=== PATIENT | male | born 1955 ===

== ENCOUNTER 2017-05-18 12:25 | Inpatient (IN) ==
[2017-05-18 13:53] VITALS: BMI 27.2
[2017-05-18] MEDS ORDERED: METOCLOPRAMIDE 10mg/2ml INJECTION IVP PRN (14:36)
[2017-05-18] MEDS ORDERED: ONDANSETRON 4 MG/2 ML INJECTION IVP PRN (14:36)
[2017-05-18] MEDS ORDERED: FentaNYL 100 MCG/2 ML INJECTION IVP PRN (14:36)
--- NOTE | 2017-05-18 15:12 | Ultrasound Report ---
Indication: acute cholecystitis PROCEDURE: US gall bladder: Encounter: Initial Comparison: None Technique: Grayscale and color Doppler sonographic imaging of the right upper quadrant of the abdomen was performed. Findings: Hepatic parenchyma is homogeneous without evidence for focal mass. The gallbladder is abnormal with multiple shadowing gallstones measuring up to 1.5 cm in diameter. At least one stone appears lodged in the gallbladder neck. There is wall thickening up to 5 mm. The sonographic Garcia's sign was positive. Both the intra and extrahepatic biliary system are of normal caliber with the common duct measuring 6 mm in dimension. Visualized portions of the head and body of the pancreas are unremarkable. The right kidney is present without collecting system dilatation. The right kidney measures 10.1 cm in length. Impression: Acute cholecystitis. .
--- NOTE | 2017-05-18 16:16 | History & Physical Report ---
History of Present Illness Date: 05/18/17 Chief complaint: Abdominal pain HPI: Sridhar Che is a 62 y/o male transferred to [facility] from [facility] after admission there for cholecystitis. CT scan on 05/17/17 showed GB wall thickening (an earlier CT revealed percholecystic fat stranding which resolved). There was also a small cyst in the central prostrate. Labs on 05/18/17 : Na 134, K 3.6 (improved from 3.0), BUN 6, cr 0.8, AP 96, ALT 12, AST 15, T bili 0.6, trop neg, lipase 10, WBC 15, hgb 14.9, plt 179. He was actually seen approx. 4 weeks earlier with near-exact symptoms and diagnosed with GB disease. At that time, he was admitted and was cleared by cardiology IRINEO Fields from Dr Patiño's office: Plavix was dc'd (and actually, stated that there was no need to continue it). He was declared to be at moderate michlele- operative CV risk. Since he was readmitted and previously cleared by cardiology , Dr. Arroyo and Dr. Burton were consulted and accepted the patient in transfer. Sridhar reports that he had RUQ pain with nausea and vomiting. He has felt a bit weak in general but denies vertigo, dizziness, or syncope. He has had sweating and chills but denies fevers. He denies diarrhea or constipation or hematochezia or melena - last BM was 05/17/17. He also denied any hematemesis. No recent illness ie URI or urinary sx. He denies chest pain or palpitations but has been told in the past that he has an irreg. HR (though denied A-fib). He has felt "a little" SOA and reports b/l leg swelling. He was on oxygen during this interview but is not O2 dependent at home. He uses breathing treatments at home which are helpful. Review of Systems All systems PM: 10-point ROS was reviewed, no additional remarkable complaints except - Constitutional Constitutional: Present: chills, night sweats, weakness, weight loss. Absent: fever(s), headache(s) - EENMT Eyes: Absent: change in vision Balance: Absent: vertigo Nose: Absent: obstruction Mouth/Throat: Present: sore throat. Absent: changes in swallowing - Cardiovascular Cardiovascular: Present: dyspnea on exertion. Absent: chest pain, palpitations Vascular: Present: pedal edema - Respiratory Respiratory: Present: dyspnea. Absent: cough - Gastrointestinal Gastrointestinal: Present: abdominal pain, dyspepsia, nausea, vomiting. Absent : diarrhea, melena - Genitourinary Genitourinary: Absent: dysuria - Musculoskeletal Musculoskeletal: Present: back pain - Integumentary/Breasts Integumentary: Absent: rash, wounds - Neurological Neurological: Absent: confusion, dizziness, frequent falls, numbness, paresthesias - Psychiatric Psychiatric: Present: anxiety, depression Psychiatric Comments: Records from [place] report that he is a poor historian - Endocrine Endocrine: Absent: palpitations - Hematologic/Lymphatic Hematologic/Lymphatic: Present: easy bruising - Allergic/Immunologic Allergic/Immunologic: Present: seasonal rhinorrhea Past Medical History Medical History Updates: Bipolar, schizoaffective disorder, Major depression, auditory hallucinations. Previous suicide attempt by hanging. Left adrenal mass. CAD. HTN. dyslipidemia. COPD. GERD Surgical History: Right ankle ORIF. Hernia repair x2. Coronary stent x3; (2 placed in 2013; most recent stent 04/2015). Cardiac cath 11/2016: non- obstructive CAD (stent to LAD widely patent, mid RCA 40%, proxRPLA 40%, LAD and Cx luminal irreg, EF 60%). Echo 05/03/17: EF 60-65%, no sigificant valve disease , grade 1 diastolic dysfunction Family History Updates: Both parents are . He doesn't know what chronic diseases (if any) or how old they were at time of . 2 brothers and 1 sister - still living (to his knowledge). Family History: As Above - Social History Smoking status: Current every day smoker Packs per day: 1 Packs-years: 39 Substance use type: marijuana (daily) Alcohol intake frequency: former alcohol drinker (quit drinking in 2004; used to be an alcoholic) Current occupational status: disabled (back pain) Previous occupational history: senior shipping clerk repair Social history: No advanced directives but he would like to ask his best friend, María to be his DPOA <12th grade education Medications Allergies Allergy/AdvReac Type Severity Reaction Status Date / Time passion fruit Allergy Verified 05/18/17 14:05 Exam Vital Signs: Temperature 97.6 F 05/18/17 13:43 Pulse Rate 65 05/18/17 13:43 Respiratory Rate 18 05/18/17 13:43 Blood Pressure 149/90 H 05/18/17 13:43 Pulse Oximetry 95 05/18/17 13:43 Height/Weight/BMI: Height 1.75 m Weight 83.6 kg Body Mass Index 27.2 - Constitutional Present: no acute distress, well nourished, well developed - Routine HEENT Exam Head: Present: normocephalic Eye: Present: PERRL. Absent: conjunctival icterus, scleral injection ENT: Present: mucous membranes dry, oropharynx clear. Absent: dentition normal (edentulous) - Routine Neck Exam Present: supple - Routine Respiratory Exam Present: CTA bilaterally - Routine Cardiovascular Exam Present: RRR, S1, S2, irregular rhythm - Routine Abdominal Exam Present: soft, tenderness (RUQ). Absent: normoactive bowel sounds (hypoactive) - Routine Extremities Exam Present: no edema, pulses intact - Routine Skin Exam Present: intact, dry, warm - Routine Neurological Exam Present: alert, oriented X3, CN II-XII intact, moving all extremities, vision grossly intact, hearing grossly intact, normal speech - Routine Psychiatric Exam Present: normal affect, cooperative Results - Labs CBC & Chem 7: 05/18/17 14:52 05/18/17 14:52 - Imaging and Cardiology US gall bladder Additional comments: Date of Exam: 05/18/17 Ordering Provider: Jesenia Burton MD Type of Exam(s): US gall bladder Reason for Exam(s): acute cholecystectomy Indication: acute cholecystitis PROCEDURE: US gall bladder: Encounter: Initial Comparison: None Technique: Grayscale and color Doppler sonographic imaging of the right upper quadrant of the abdomen was performed. Findings: Hepatic parenchyma is homogeneous without evidence for focal mass. The gallbladder is abnormal with multiple shadowing gallstones measuring up to 1.5 cm in diameter. At least one stone appears lodged in the gallbladder neck. There is wall thickening up to 5 mm. The sonographic Garcia's sign was positive. Both the intra and extrahepatic biliary system are of normal caliber with the common duct measuring 6 mm in dimension. Visualized portions of the head and body of the pancreas are unremarkable. The right kidney is present without collecting system dilatation. The right kidney measures 10.1 cm in length. Impression: Acute cholecystitis. Assessment and Plan (1) Cholecystitis, acute Current visit: Yes Status: Acute Assessment and Plan: ASSESSMENT Acute cholecystitis Leukocytosis, POA Hypokalemia, POA CAD - Plavix dc'd per cardiology HTN dyslipidemia COPD GERD Bipolar, schizoaffective disorder, Major depression (Previous suicide attempt by hanging), auditory hallucinations Left adrenal mass PLAN Admit, observation status, under the hospitalist service. Dr. Arroyo consulted. Results of GB U/S obtained on admission consistent with acute cholecystitis. Plans to take pt to OR in am. NPO after midnight. Recommends to start Zosyn. K still low; KDur ordered. Check mg. Trop was minimally elevated though had neg trop in [place] - repeat in am. Denies angina. EKG ordered, pending. He was cleared by cardiology while still in [place]: moderate michelle-op risk. Sx control: Fentanyl and Reglan and Zofran. Psych history: will have ativan available. No Advanced directives, but he'd like to ask best friend María to be DPOA if she's willing. Full code. Nicotine patch ordered. RT consulted for tobacco cessation. Note: Home meds not reconciled and will need to be ordered once this is done. DVT Prophylaxis: SCD's GI Prophylaxis: Protonix Resuscitation Status: Full Code - Physician Narrative Physician: Jesenia Burton MD Narrative: Date: 05/18/17 Time: 1914 I have independently evaluated and examined this patient. I reviewed the chart, the patient's history, and the APPLE PEELER OPERATOR/PA's documented findings as above. We discussed and formulated the assessment and plan as above with additions as below: Mr. Che was transferred from [facility] due to suspicion of acute cholecystitis; he was referred for surgical consultation. Cardiology has recently given and preoperative clearance and discontinued Plavix since last cardiac stent was placed approximately 3 years ago and since that time he's had no acute cardiac symptoms. Patient is alert and cooperative; regular cardiac rhythm, right sounds clear Abdomen is moderately distended, soft, and tender to palpation in the right upper quadrant without guarding Right upper quadrant/gallbladder sonogram reviewed-multiple gallstones present with gallbladder wall thickening ECG reviewed by myself demonstrating sinus rhythm with incomplete right bundle branch block, diffuse T-wave flattening, no acute changes. Discussed with Dr. Arroyo; operating room schedule does not permit surgery today but tentatively scheduled for laparoscopic cholecystectomy in the morning. Hospital Course Summary Disclaimer: The visit summary below is not to be considered part of the above Progress Note. Hospital Course: 05/18/17 Admit, observation status, under the hospitalist service. Dr. Arroyo consulted. Results of GB U/S obtained on admission consistent with acute cholecystitis. Plans to take pt to OR in am. NPO after midnight. Recommends to start Zosyn. K still low; KDur ordered. Check mg. Trop was minimally elevated though had neg trop in [place] - repeat in am. Denies angina. EKG ordered, pending. He was cleared by cardiology while still in [place]: moderate michelle-op risk. Sx control: Fentanyl and Reglan and Zofran. Psych history: will have ativan available. No Advanced directives, but he'd like to ask best friend María to be DPOA if she's willing. Full code. Nicotine patch ordered. RT consulted for tobacco cessation. Note: Home meds not reconciled and will need to be ordered once this is done.
[2017-05-18] MEDS: PIPERACILLIN/TAZOBACTAM 3.375 GM in NS 100 ML IV SCH ×2 (16:50→21:35)
[2017-05-18] MEDS: LR 1,000 ML IV SCH (16:52)
[2017-05-18] MEDS: NICOTINE 21 MG PATCH TD SCH (18:33)
--- NOTE | 2017-05-18 19:59 | Consultation ---
DATE OF CONSULTATION 05/18/2017 HISTORY OF PRESENT ILLNESS This patient is 62 years old. This patient was admitted to [facility] on 04/16/2017 with acute cholecystitis. The patient had a CT scan at that time which showed fat stranding around the gallbladder. The patient was anticoagulated with Plavix at this time. The patient was treated with intravenous antibiotics. The patient improved. The patient was subsequently discharged home on 04/23/2017. The patient reports that he did not have any further right upper quadrant abdominal pain from the time he was dismissed on 04/23/2017 until 05/17/2017. The Plavix for the patient was stopped about three weeks ago. The patient did have the onset of right upper quadrant abdominal pain again on the morning of 05/17/2017. This was right upper quadrant abdominal pain which radiated to the entire abdomen. This right upper quadrant abdominal pain worsened throughout the day on 05/17/2017. The patient did come to [facility] emergency room on the evening of 05/17/2017. The patient reported that his last oral intake had been at noon. The patient denied vomiting. The patient did undergo a CT scan of the abdomen and pelvis at the time of emergency room evaluation on 05/17/2017. This showed some subtle circumferential gallbladder wall thickening without distention. There was resolution of the previous pericholecystic fat stranding. There was no intra or extrahepatic biliary ductal dilation. White blood cell count was 11,000. Liver function tests were all normal. Lipase was normal. There was no left shift of the differential for the CBC. The patient was admitted to [facility] from the emergency room on the evening of 05/17/2017 for pain control. The patient did have persistent right upper quadrant abdominal pain on the morning of 05/18/2017. He continued to require intravenous analgesics for control of the pain. The patient was transferred from [facility] to [facility] on the afternoon of 05/18/2017 for further evaluation and treatment. PAST MEDICAL HISTORY Previous Operations: 1. Laparoscopic bilateral inguinal hernia repair in 1998 or 1999 at [facility] [place], [place]. 2. Right ankle operation for repair of right ankle fracture in [address] [facility] at [place], [place]. 3. Cardiac catheterization with placement of coronary artery stent in 2013 at [place], [place]. 4. Cardiac catheterization with placement of coronary artery stent later in 2013 at [place], [place]. 5. Cardiac catheterization with placement of coronary artery stent in April 2015 in [place]. 6. Cardiac catheterization on 12/09/[address] Stephen at the [facility] [place], [place]. The patient was admitted on 12/08/2017 and discharged on 12/09/2016. Discharge diagnosis was non-STEMI. The cardiac catheterization did reveal nonobstructive coronary artery disease. There was a previous stent of the left anterior descending coronary artery which was widely patent. There was 40% stenosis of the mid right coronary artery. Other Current Medical Problems: 1. Coronary artery disease. 2. Nicotine dependence. 3. Chronic obstructive pulmonary disease. 4. Gastroesophageal reflux disease. 5. Chronic back pain. 6. Schizoaffective disorder. 7. Hypertension. 8. Hyperlipidemia. PHYSICAL EXAMINATION VITAL SIGNS: Temperature is 97.6 degrees Fahrenheit oral. Pulse is 65. Respiratory rate is 18. Blood pressure is 149/90. Oxygen saturation is 95% with the patient receiving oxygen at 4 liters by nasal cannula. Height is 1.75 meters. Weight is 83.6 kg. BMI is 27.2 kg/m2. ABDOMEN: The abdomen is soft. No abdominal masses. The patient has some mild right upper quadrant abdominal tenderness at this time. The patient has old laparoscopy incision scars including an old supraumbilical incision scar. SKIN: No jaundice. LABORATORY DATA White blood cell count is 13,400 with no bands. There are 79.6% neutrophils in the differential. Serum sodium is 144. Serum potassium is 3.5. Serum creatinine is 0.8. IMAGING DATA This patient did have a gallbladder sonogram performed at [facility] on 05/18/2017. The gallbladder sonogram does show multiple shadowing gallstones. One gallstone appears to be lodged in the gallbladder neck. There is gallbladder wall thickening. There is a positive sonographic Garcia's sign. Findings are thought to be consistent with acute cholecystitis and cholelithiasis. Bile ducts are not dilated. IMPRESSION 1. Acute cholecystitis and cholelithiasis. 2. Mild hypokalemia. 3. Coronary artery disease. 4. Nicotine dependence. 5. Chronic obstructive pulmonary disease. 6. Gastroesophageal reflux disease. 7. Chronic back pain. 8. Schizoaffective disorder. 9. Hypertension. 10. Hyperlipidemia. RECOMMENDATIONS 1. Multiport robotic laparoscopic cholecystectomy. 2. Start patient on intravenous Zosyn. PATIENT EDUCATION I did talk with the patient about undergoing a laparoscopic cholecystectomy operation. Expected benefits were reviewed. Alternatives were reviewed. Potential risks and complications were also reviewed including anesthetic risk, bleeding, infection, poor wound healing, bile leak and injury to intraabdominal structures such as the liver, the common duct, the duodenum and loops of large and small intestine. I did tell the patient that there is a chance that any laparoscopic cholecystectomy operation such as this might need to be converted over to an open laparotomy with cholecystectomy operation. The patient does appear to understand all of this. He does wish to proceed with the operation. RADHA
[2017-05-19] MEDS: LR 1,000 ML IV SCH ×5 (01:55→22:36)
[2017-05-19] MEDS: PIPERACILLIN/TAZOBACTAM 3.375 GM in NS 100 ML IV SCH ×4 (04:23→22:12)
[2017-05-19] MEDS: NICOTINE 21 MG PATCH TD SCH ×2 (09:03→22:12)
[2017-05-19] MEDS: NICOTINE PATCH REMOVAL TD SCH (09:03)
--- NOTE | 2017-05-19 09:14 | Anesthesia Preoperative Report ---
Anesthesia Preoperative Record - Date and Time Date: 05/19/17 Preoperative Diagnosis: Right upper quadrant pain Proposed Procedure: Robotic Lap gregor NPO Since Date: 05/19/17 NPO Since Time: 00:00 Allergies/Adverse Reactions: Allergies Allergy/AdvReac Type Severity Reaction Status Date / Time passion fruit Allergy Verified 05/18/17 14:05 - Vital Signs Vital Signs: Temperature 97.1 F 05/19/17 07:57 Pulse Rate 86 05/19/17 07:57 Respiratory Rate 18 05/19/17 07:57 Blood Pressure 152/108 H 05/19/17 07:57 Pulse Oximetry 94 05/19/17 07:57 Height and Weight: Height 1.75 m Weight 82 kg Body Mass Index 27.2 - Medications Inpatient Medications: Current Medications Fentanyl (Fentanyl) 25 - 50 mcg IVP Q2HR PRN Lactated Ringer's (Lactated Ringers) 1,000 mls @ 100 mls/hr IV .Q10H JOSELYN Last Infusion: 05/19/17 04:53 Dose: 100 mls/hr Piperacillin Sod/Tazobactam (Sod 3.375 gm/ Sodium Chloride) 100 mls @ 200 mls/ hr IV Q6H JOSELYN Last Infusion: 05/19/17 04:53 Dose: Infused Lorazepam (Ativan Inj) 0.5 mg IVP Q6H PRN Metoclopramide HCl (Reglan) 5 mg IVP Q6H PRN Nicotine (Nicoderm) 21 mg TD DAILY JOSELNY Last Admin: 05/19/17 09:03 Dose: Not Given Nicotine (Nicotine Patch Removal) 1 removal TD DAILY JOSELYN Last Admin: 05/19/17 09:03 Dose: 1 removal Ondansetron HCl (Zofran) 4 mg IVP Q6H PRN PRN Reason: Nausea &/or vomiting Pantoprazole Sodium (Protonix Iv) 40 mg IVP DAILY JOSELYN Is Patient on Beta Candace?: No - Medical History Respiratory: Reports: Chronic Obstructive Pulmonary Disease (COPD) Cardiovascular: Reports: Congestive Heart Failure, Hypertension, High Cholesterol, Myocardial Infarction (3x [place]) Gastrointestional: Reports: Nausea or Vomiting Present, Gastroesophageal Reflux Disease Neuro/Musculoskeletal: Reports: Back Problems (2x buldging disks), Depression Renal/Endocrine: Reports: Weight Loss - Surgical History Cardiac Surgeries/Treatments: Reports: Cardiac Catheterization (3x stents) GI Surgery/Treatments: Reports: Hernia Repair (2x groin repair) Musculoskeletal Surgery/Tx: Reports: Joint Surgery (ankle fracture and fixed 2008) Anesthesia Reactions: None Hx Family Anesthesia Reaction: No History of Motion Sickness: No - Social History Smoking Status: Current every day smoker Packs per day: 1 Pack-years: 39 Hx Chewing Tobacco Use: No Second Hand Exposure: No Substance Use Type: marijuana (daily) Alcohol Intake Frequency: former alcohol drinker (quit drinking in 2004; used to be an alcoholic) - Pertinent Findings Laboratory: CBC and BMP 05/19/17 05:09 05/19/17 05:09 BMP 05/18/17 05/19/17 14:52 05:09 Sodium 144 142 Potassium 3.5 L 3.7 Chloride 104 103 Carbon Dioxide 27 28 BUN 7.0 L 8.0 L Creatinine 0.8 0.8 Glucose 124 H 122 H Calcium 8.9 8.9 Cardiac Enzymes 05/18/17 05/18/17 05/19/17 Range/Units 14:52 21:25 05:09 Troponin I 0.121 H 0.092 0.068 (0-0.12) ng/ml Liver Function 05/18/17 Range/Units 14:52 Total Bilirubin 0.40 (0.20-1.30) MG/DL AST 21 (17-59) U/L ALT 14 (1-50) U/L Alkaline Phosphatase 102 (38-126) U/L Albumin 3.8 (3.5-5.0) g/dL EKG: First Degree AV Block, Sinus Dysrhythmia - Physical Exam Respiratory Exam: Present: lungs clear Cardiovascular Exam: Present: regular rate and rhythm - Airway Assessment Mallampati Score: II TMD: 3 Fingerbreadths Neck Extension: fair Overall Assessment: no airway concerns - ASA ASA Score: 3 - Plan Anesthesia: General Inhalation Gases - Discussion Discussion: Discussed risks/options/alternatives of anesthesia and questions answered. Patient consents. Nursing pain assessment noted. Attestation Statement: Prior to the delivery of any anesthetic medication, I examined the patient, developed the plan, obtained the patient's consent and discussed the risk and benefits of the procedure with the patient/guardian. - Additional Information Seen by Anesthesia: Yes
[2017-05-19] MEDS ORDERED: BUPIVACAINE 0.25% (2.5mg/ml) PF 30ml INJECTION ONE ×2 (09:16→09:45)
[2017-05-19] MEDS ORDERED: INDOCYANINE GREEN 25mg INJECTION ONE (09:16)
[2017-05-19] MEDS: PANTOPRAZOLE 40 MG INJECTION IVP SCH (09:41)
[2017-05-19] MEDS ORDERED: PROPOFOL 20 ML ONE (09:45)
[2017-05-19] MEDS ORDERED: ROCURONIUM 50 MG/5 ML INJECTION IVP ONE (09:45)
[2017-05-19] MEDS ORDERED: SALINE FLUSH 10ml SYRINGE ONE (09:49)
[2017-05-19] MEDS ORDERED: METOPROLOL 5mg/5ml INJECTION IVP ONE (10:27)
[2017-05-19] MEDS ORDERED: FentaNYL 250 MCG/5 ML INJECTION ONE (10:27)
[2017-05-19] MEDS ORDERED: ONDANSETRON 4 MG/2 ML INJECTION ONE (10:29)
[2017-05-19] MEDS ORDERED: DEXAMETHASONE 4 MG/ML INJECTION ONE (10:29)
[2017-05-19] MEDS ORDERED: DESFLURANE 240ml LIQUID IH ONE (11:07)
[2017-05-19] MEDS ORDERED: BUPIVACAINE 0.25% (2.5mg/ml) PF 30ml INJECTION INFIL ONE (11:09)
[2017-05-19] MEDS ORDERED: INDOCYANINE GREEN 25mg INJECTION IVP ONE (11:09)
[2017-05-19] MEDS ORDERED: SALINE FLUSH 10ml SYRINGE IV ONE ×2 (11:09→11:11)
--- NOTE | 2017-05-19 11:22 | Progress Note ---
- Date 05/19/17 Subjective: Mr. Che (patient seen approximately 10 AM) reports persistent epigastric pain with minimal nausea and no vomiting overnight. He denies heartburn. He has not had fever but reports he had some diaphoresis overnight. He denies dyspnea, chest pain, palpitations, or lightheadedness. He is tentatively scheduled to go to the operating room in the next hour for cholecystectomy. Objective Vital signs: Temperature 97.1 F 05/19/17 07:57 Pulse Rate 86 05/19/17 07:57 Respiratory Rate 18 05/19/17 07:57 Blood Pressure 152/108 H 05/19/17 07:57 Pulse Oximetry 94 05/19/17 07:57 NAD, alert Conjunctiva clear, sclera anicteric Respirations nonlabored, good airflow, breath sounds clear anteriorly Regular rhythm, S1-S2 Abdomen soft, moderately distended, tender in the palpation throughout the right upper quadrant with guarding present today, diminished bowel sounds Lower extremities without edema Patient calm, cooperative, euthymic Height/Weight/BMI: Height 1.75 m Weight 82 kg Body Mass Index 27.2 Results - Labs CBC & Chem 7: 05/19/17 05:09 05/19/17 05:09 Labs: S83 B1 L8 M8 Troponin troponin 0.121-0.092-0.06 Assessment and Plan (1) Cholecystitis, acute Current visit: Yes Status: Acute Assessment and Plan: ASSESSMENT Acute cholecystitis Leukocytosis, POA Hypokalemia, POA CAD - Plavix dc'd per cardiology HTN dyslipidemia COPD GERD Bipolar, schizoaffective disorder, Major depression (Previous suicide attempt by hanging), auditory hallucinations Left adrenal mass PLAN Medically stable to proceed with surgery as planned. White count higher this morning, continue antibiotics in the immediate postoperative time. Worrisome for biliary infection and may require further inpatient antibiotics. Resume aspirin, metoprolol, Depakote, and Lexapro postoperatively. Patient typically uses DuoNeb twice daily at home but postoperatively will increase to 4 times daily and request are. Continue IV fluids and PPI. - Physician Narrative Narrative: Date: 05/19/17 Time: 1114 Hospital Course Summary Disclaimer: The visit summary below is not to be considered part of the above Progress Note. Hospital Course: 05/18/17 Admit, observation status, under the hospitalist service. Dr. Arroyo consulted. Results of GB U/S obtained on admission consistent with acute cholecystitis. Plans to take pt to OR in am. NPO after midnight. Recommends to start Zosyn. K still low; KDur ordered. Check mg. Trop was minimally elevated though had neg trop in [place] - repeat in am. Denies angina. EKG ordered, pending. He was cleared by cardiology while still in [place]: moderate michelle-op risk. Sx control: Fentanyl and Reglan and Zofran. Psych history: will have ativan available. No Advanced directives, but he'd like to ask best friend María to be DPOA if she's willing. Full code. Nicotine patch ordered. RT consulted for tobacco cessation. Note: Home meds not reconciled and will need to be ordered once this is done. 05/19/17 Medically stable to proceed with surgery as planned. White count higher this morning, continue antibiotics in the immediate postoperative time. Worrisome for biliary infection and may require further inpatient antibiotics. Resume aspirin, metoprolol, Depakote, and Lexapro postoperatively. Patient typically uses DuoNeb twice daily at home but postoperatively will increase to 4 times daily and request are. Continue IV fluids and PPI.
[2017-05-19] MEDS ORDERED: ONDANSETRON 4 MG/2 ML INJECTION IVP PRN ×2 (11:52→12:43)
[2017-05-19] MEDS ORDERED: METOCLOPRAMIDE 10mg/2ml INJECTION IVP PRN (11:52)
[2017-05-19] MEDS ORDERED: FentaNYL 100 MCG/2 ML INJECTION IVP PRN (11:52)
[2017-05-19] MEDS ORDERED: HYDROMORPHONE 2 MG/ML INJECTION IVP PRN (11:52)
[2017-05-19] MEDS ORDERED: SUGAMMADEX 200mg/2ml INJECTION IVP ONE (11:54)
--- NOTE | 2017-05-19 12:10 | General Surgery Procedure Note ---
Date of Procedure: 05/19/17 Surgeon: Dina Postoperative Diagnosis: Acute cholecystitis and cholelithiasis Procedure: Robotic laparoscopic cholecystectomy Estimated Blood Loss: See Anesthesia Record.
--- NOTE | 2017-05-19 12:17 | Anesthesia Postoperative Note ---
- Date and Time Date: 05/19/17 Time: 12:17 - Status Patient Participated in Evaluation: Patient Participated in Person Vital Signs: Temperature 97.1 F 05/19/17 07:57 Pulse Rate 86 05/19/17 07:57 Respiratory Rate 18 05/19/17 07:57 Blood Pressure 152/108 H 05/19/17 07:57 Pulse Oximetry 94 05/19/17 07:57 Respiratory Function: Airway Patent Cardiovascular Function: Regular Pulse EKG: Sinus Rhythm Mental Status: Alert and Oriented Pain Intensity: 0 Hydration: IV Infusing Complications During Recover: None Apparent - Follow-Up Instructions Instructions: Per Surgeon
[2017-05-19] MEDS ORDERED: ACETAMINOPHEN 500 MG TABLET PO PRN (12:43)
[2017-05-19] MEDS ORDERED: MORPHINE SULFATE 10 MG SYRINGE IV PRN (12:43)
[2017-05-19] MEDS ORDERED: IBUPROFEN 200 MG TABLET PO PRN (12:43)
[2017-05-19] MEDS ORDERED: PROMETHAZINE 25 MG INJECTION IVP PRN (12:43)
[2017-05-19] MEDS ORDERED: ALBUTEROL/IPRATROPIUM 2.5mg-0.5mg/3ml NEB AEROSOL SCH (13:00)
[2017-05-19] MEDS ORDERED: INFLUENZA VAC QIV 2017-18 (Fluarix*)(>=3yo) 0.5ml IM ONE (13:00)
[2017-05-19] MEDS ORDERED: INFLUENZA VAC. INJ. ADMIN CHARGE INJ ONE (15:07)
[2017-05-19] MEDS: ALBUTEROL/IPRATROPIUM 2.5mg-0.5mg/3ml NEB AEROSOL SCH ×2 (15:14→18:55)
[2017-05-19] MEDS: Oxycodone *IR* 5 MG TABLET PO PRN ×2 (15:50→18:48)
--- NOTE | 2017-05-19 16:20 | Operative Note ---
DATE OF OPERATION 05/19/2017 PREOPERATIVE DIAGNOSIS Acute cholecystitis and cholelithiasis. POSTOPERATIVE DIAGNOSIS Acute cholecystitis and cholelithiasis. OPERATION Multiport robotic laparoscopic cholecystectomy. SURGEON Dr. Arroyo ANESTHESIA General. ASA Class 3E FINDINGS The gallbladder did appear to be acutely inflamed. The gallbladder wall was thickened. The gallbladder contained multiple gallstones. The gallbladder was distended. The gallbladder was filled with purulent fluid. There was a lot of edema around the gallbladder. The greater omentum was adherent to the outside surface of the gallbladder. The liver appeared normal. DESCRIPTION OF OPERATION The patient did have injectable indocyanine green dye administered intravenously preoperatively. The patient was placed in supine position on the operating table. General anesthesia was satisfactorily induced. The abdomen was prepped and draped in routine sterile fashion. Bupivacaine 0.25% without epinephrine was infiltrated into the skin and underlying tissue at an infraumbilical incision site. An infraumbilical incision was made. A Veress needle was inserted into the peritoneal cavity through the incision. Pneumoperitoneum was established with carbon dioxide. The Veress needle was removed. A 12-mm camera port was placed at the infraumbilical incision. A 12- mm 30-degree da Asia laparoscope was inserted at the infraumbilical port. The patient was placed in reverse Trendelenburg position. The right side of the table was tilted up. The skin and underlying structures at the abdominal wall were infiltrated with bupivacaine at a port site at the left upper quadrant of the abdomen at the midclavicular line. An incision was made at this site and an 8-mm da Asia instrument port was placed at this incision. The skin and underlying abdominal wall structures were infiltrated with bupivacaine at another incision site at the left side of the abdomen. An incision was made at this site and an [employer] certified medical technician assistant port was placed at this incision. The skin and underlying abdominal wall structures were infiltrated with bupivacaine at a port site at the right upper quadrant of the abdomen. An incision was made at this site and an 8-mm da Asia instrument port was placed at this incision. The skin and underlying abdominal wall structures were infiltrated with bupivacaine at another port site at a more lateral location at the right side of the abdomen. An incision was made at this site and another 8-mm da Asia instrument port was placed at this incision. The da Asia robotic system was brought up to the operating table. The da Asia robotic system was docked to the camera port and the instrument ports. The da Asia 12-mm 30-degree laparoscope was inserted at the camera port. A [place] bipolar forceps was inserted at the 8-mm instrument port at the left upper quadrant of the abdomen associated with instrument arm #1. A Cadiere forceps was inserted at the 8-mm instrument port at the right upper quadrant of the abdomen associated with instrument arm #2. An aspirating cannula with syringe attached to it was introduced through the 8-mm port at the right lateral location of the abdomen. The syringe and aspirating cannula were used to aspirate fluid from within the gallbladder. This did decompress the gallbladder and make it less distended. This fluid which was aspirated from the gallbladder was submitted to the laboratory for aerobic and anaerobic bacterial culture and sensitivity studies. A ProGrasp forceps was then inserted at the 8-mm instrument port at the right lateral location at the abdomen associated with instrument arm #3. These instruments were all placed into a position adjacent to the gallbladder. The surgeon went from the patient's side at the operating table to the surgeon console. Greater omentum was bluntly from the fundus of the gallbladder. The ProGrasp forceps with instrument arm #3 was used to grasp the fundus of the gallbladder and elevate the gallbladder. Additional greater omentum was then bluntly from the outer surface of the gallbladder. The ProGrasp forceps with instrument arm #3 was then used to elevate the gallbladder and reflect the liver up superiorly further towards the right diaphragm. Edematous adipose tissue was dissected free from the infundibulum of the gallbladder using the [place] bipolar forceps. When the infundibulum of the gallbladder was finally exposed, the infundibulum of the gallbladder was able to be grasped with the Cadiere forceps with instrument arm #2. Additional tissue was dissected off of the infundibulum of the gallbladder. This was edematous adipose tissue around the infundibulum of the gallbladder. Dissection was then performed at the hepatocystic triangle. The cystic duct was dissected out and identified. The cystic artery was dissected out and identified. The cystic duct was demonstrated with Firefly fluorescence imaging at this time to help confirm the identity of the cystic duct. Dissection was performed at the hepatocystic triangle until the only two structures remaining were the cystic duct and the cystic artery. A critical view of safety was achieved at this time. Dissection was continued until the hepatocystic triangle was cleared of all fatty and fibrous tissue until the only two structures remaining were the cystic duct and the cystic artery. Three of the Hem-o-heather clips were applied to the cystic duct at the junction of the cystic duct and the gallbladder. The cystic duct was divided between the Hem-o-heather clips with a curved dissecting scissors. Two of the Hem-o-heather clips were left in place on the cystic duct stump. Three of the Hem-o-heather clips were also applied to the cystic artery. The cystic artery was divided between the Hem-o- heather clips with the monopolar curved scissors. Two of the Hem-o-heather clips were left in place on the cystic artery stump which was left behind in the patient. The monopolar curved scissors was then used to dissect the gallbladder out of the gallbladder bed. Tissue was coagulated with the monopolar curved scissors as the gallbladder was being dissected out of the gallbladder bed to maintain hemostasis. The gallbladder was completely dissected out of the gallbladder bed. Irrigation was performed at the gallbladder bed. Irrigation was performed at the right subdiaphragmatic space. Irrigation was performed until all the irrigation fluid was clear. The gallbladder was then placed in a position in the peritoneal cavity along the margin of the liver. The instruments were removed from the instrument ports. The da Asia laparoscope was removed from the camera port. The da Asia robotic system was undocked from the ports. The surgeon left the surgeon console and returned back to the side of the patient at the operating table. The da Asia 8.5 mm 30-degree laparoscope was inserted at one of the right-sided da Asia instrument ports. The specimen retrieval pouch was inserted at the camera port. The gallbladder was placed in the specimen retrieval pouch. The specimen retrieval pouch containing the gallbladder was brought out through the infraumbilical incision. The gallbladder was submitted as a specimen for study by the pathologist. The instrument ports were all removed. Carbon dioxide was removed from the peritoneal cavity by desufflation. The fascial layer of the infraumbilical incision was closed with a series of simple interrupted stitches using 0-Vicryl suture. The skin margins were then closed at all the incisions with subcuticular stitches using 4-0 Vicryl suture. Benzoin and 1/4-inch wide Steri- Strips were applied to the incisions. Band-Aids and sterile dressings were applied to the incisions. The patient tolerated the operation well. The patient was transferred from the operating room to the recovery room in satisfactory condition. RADHA
[2017-05-19] MEDS: DIVALPROEX 500 MG TABLET PO SCH (20:43)
[2017-05-20] MEDS: Oxycodone *IR* 5 MG TABLET PO PRN ×5 (00:10→20:03)
[2017-05-20] MEDS: PIPERACILLIN/TAZOBACTAM 3.375 GM in NS 100 ML IV SCH ×4 (05:26→21:55)
[2017-05-20] MEDS: ALBUTEROL/IPRATROPIUM 2.5mg-0.5mg/3ml NEB AEROSOL SCH ×4 (06:43→20:55)
[2017-05-20] MEDS: ASPIRIN 81 MG CHEWABLE TABLET PO SCH (09:56)
[2017-05-20] MEDS: ESCITALOPRAM 20 MG TABLET PO SCH (09:56)
[2017-05-20] MEDS: PANTOPRAZOLE 40 MG INJECTION IVP SCH (09:56)
[2017-05-20] MEDS: NICOTINE PATCH REMOVAL TD SCH (09:57)
[2017-05-20] MEDS: NICOTINE 21 MG PATCH TD SCH (10:00)
--- NOTE | 2017-05-20 10:22 | Progress Note ---
- Date 05/20/17 Subjective: The patient was seen this morning in his room accompanied by his nurse. He states he's feeling really well. He has some occasional abdominal discomfort, but no significant pain now. He was able to eat a regular diet for breakfast and has no nausea or GI upset. He is requiring 3 L of oxygen. He is hypoxic on room air. He denies feeling short of breath currently. He states he occasionally feels short of breath at home. He is not on oxygen at home. He does smoke and has a chronic cough but occasionally productive. He denies any chest pain or headache. He has been up walking without difficulties. He has a little bit of itching on his arm where he has a tattoo. Otherwise he denies any pruritus. His complexion on his face chest and back is elizabeth, but I did have him look in the mere and he stated that his complexion looks normal to him. The patient denies any anxiety or nervousness. He states his mood is good. Objective Vital signs: Temperature 96.3 F L 05/20/17 07:19 Pulse Rate 91 05/20/17 07:23 Respiratory Rate 16 05/20/17 07:19 Blood Pressure 135/69 05/20/17 07:19 Pulse Oximetry 90 05/20/17 07:23 Height/Weight/BMI: Height 1.75 m Weight 84 kg Body Mass Index 27.2 Comments: Currently on 3 L of oxygen with saturation of 90%. O2 sat was 88% on room air. GEN-alert, oriented, no acute distress. Very pleasant. HEENT-sclera anicteric, oropharynx is moist NECK-supple CV-regular rate and rhythm with occasional ectopic beat. On telemetry -Sinus rhythm, occ PAC CHEST-decreased breath sounds throughout, no wheezing or rhonchi ABD-soft, mildly distended-but the patient states his abdominal girth is normal for him, positive bowel sounds, minimal tenderness. No rebound or guarding -no King EXT-no edema, SCDs are on NEURO-no focal deficits SKIN-warm and dry. Complexion on his face chest and back is elizabeth but no obvious rashes. Patient states his current complexion is normal for him. Psychiatric-affect is upbeat. No signs of anxiety Results - Labs CBC & Chem 7: 05/20/17 04:33 05/20/17 04:33 Labs: Neutrophils 91% up from 83% yesterday. Bands 0% today down from one yesterday. Microbiology Results: Microbiology 05/19/17 10:44 Gallbladder Gram Stain - Final 05/19/17 10:44 Gallbladder Surgical Culture - Preliminary Staphylococcus aureus - ABG Interpretation Attestation: I reviewed and interpreted this ABG. Assessment and Plan (1) Cholecystitis, acute Current visit: Yes Status: Acute Assessment and Plan: ASSESSMENT Acute cholecystitis Leukocytosis, POA Hypokalemia, POA-resolved CAD - Plavix dc'd per cardiology HTN dyslipidemia COPD GERD Bipolar, schizoaffective disorder, Major depression (Previous suicide attempt by hanging), auditory hallucinations-patient pleasant and without complaints of anxiety or signs of distress today. Left adrenal mass Tobaccoism PLAN The patient underwent laparoscopic cholecystectomy yesterday and did well. Discussed with Dr. Arroyo, and he stated there was pus in the gallbladder visually during surgery yesterday. He would recommend continued IV antibiotics. The patient is currently on day 3 of Zosyn. White count is up slightly from yesterday. No fevers. No bandemia today. We'll continue Zosyn and recheck CBC and basic metabolic profile tomorrow. The patient has continued hypoxia. It's unknown if he is chronically hypoxic. We 'll check a chest x-ray. Lungs are clear on exam. Continue breathing treatments. Continue nicotine patch. Continue incentive spirometer. Continue to walk in the halls with the nurses. We'll change to inpatient status secondary to need for continued IV antibiotics concerning his grossly infected gallbladder on exam and continued elevated white count as well as regarding his hypoxia. Continue Protonix Start Lovenox today for DVT prophylaxis. Discussed with Dr. Arroyo and he is in agreement. Add MiraLAX to prevent constipation BUN and creatinine up slightly. Continue LR at 50 ML's per hour. Recheck labs tomorrow. Continue metoprolol for hypertension. Continue aspirin for coronary artery disease. DVT Prophylaxis: SCD's, Lovenox GI Prophylaxis: Protonix Resuscitation Status: Full Code - Time spent with patient Time with patient PN: 35 minutes - Physician Narrative Narrative: Date: 05/20/17 Time: 1016 Hospital Course Summary Disclaimer: The visit summary below is not to be considered part of the above Progress Note. Hospital Course: 05/18/17 Admit, observation status, under the hospitalist service. Dr. Arroyo consulted. Results of GB U/S obtained on admission consistent with acute cholecystitis. Plans to take pt to OR in am. NPO after midnight. Recommends to start Zosyn. K still low; KDur ordered. Check mg. Trop was minimally elevated though had neg trop in [place] - repeat in am. Denies angina. EKG ordered, pending. He was cleared by cardiology while still in [place]: moderate michelle-op risk. Sx control: Fentanyl and Reglan and Zofran. Psych history: will have ativan available. No Advanced directives, but he'd like to ask best friend María to be DPOA if she's willing. Full code. Nicotine patch ordered. RT consulted for tobacco cessation. Note: Home meds not reconciled and will need to be ordered once this is done. 05/19/17 Medically stable to proceed with surgery as planned. White count higher this morning, continue antibiotics in the immediate postoperative time. Worrisome for biliary infection and may require further inpatient antibiotics. Resume aspirin, metoprolol, Depakote, and Lexapro postoperatively. Patient typically uses DuoNeb twice daily at home but postoperatively will increase to 4 times daily and request are. Continue IV fluids and PPI. 05/20/2017 The patient underwent laparoscopic cholecystectomy yesterday and did well. Discussed with Dr. Arrooy, and he stated there was pus in the gallbladder. He would recommend continued IV antibiotics. The patient is currently on day 3 of Zosyn. White count is up slightly from yesterday. No fevers. No bandemia today. We'll continue Zosyn and recheck CBC and basic metabolic profile tomorrow. The patient has continued hypoxia. It's unknown if he is chronically hypoxic. We 'll check a chest x-ray. Lungs are clear on exam. Continue breathing treatments. Continue nicotine patch. Continue incentive spirometer. Continue to walk in the halls with the nurses. We'll change to inpatient status secondary to need for continued IV antibiotics concerning his grossly infected gallbladder on exam and continued elevated white count as well as regarding his hypoxia. Continue Protonix Start Lovenox today for DVT prophylaxis. Discussed with Dr. Arroyo and he is in agreement. Add MiraLAX to prevent constipation BUN and creatinine up slightly. Continue LR at 50 ML's per hour. Recheck labs tomorrow. Continue metoprolol for hypertension. Continue aspirin for coronary artery disease.
[2017-05-20] MEDS: POLYETHYL GLYCOL 3350 17gm PACKET PO SCH (10:32)
[2017-05-20] MEDS: ENOXAPARIN 40 MG/0.4 ML INJECTION SQ SCH (10:32)
[2017-05-20] MEDS: LR 1,000 ML IV SCH (20:01)
[2017-05-20] MEDS: DIVALPROEX 500 MG TABLET PO SCH (20:02)
[2017-05-21] MEDS: Oxycodone *IR* 5 MG TABLET PO PRN ×4 (01:47→21:27)
[2017-05-21] MEDS: PIPERACILLIN/TAZOBACTAM 3.375 GM in NS 100 ML IV SCH ×4 (04:41→21:50)
[2017-05-21] MEDS: LR 1,000 ML IV SCH (04:42)
[2017-05-21] MEDS: ALBUTEROL/IPRATROPIUM 2.5mg-0.5mg/3ml NEB AEROSOL SCH ×4 (07:44→20:10)
--- NOTE | 2017-05-21 07:45 | XRay Report ---
INDICATION: hypoxia PROCEDURE: CHEST 2-VIEWS UPRIGHT (PA & LAT) Encounter: Initial COMPARISON: None FINDINGS: Linear airspace opacity in the right lower lobe with hazy infiltrate in the left lower lobe as well. Upper lung kelley are clear. No pneumothorax. Trace right pleural effusion. Heart size and mediastinal contours are within normal limits. Pulmonary vascularity is normal. Free intraperitoneal air beneath the right hemidiaphragm, likely related to recent surgery. Impression: Bibasilar atelectasis versus pneumonia. .
--- NOTE | 2017-05-21 07:47 | Progress Note ---
DATE 05/20/2017 POSTOP DAY #1 HISTORY OF PRESENT ILLNESS The patient has been up ambulating. The patient is tolerating a regular diet. The patient reports that his right upper quadrant abdominal pain is much less now than it was preoperatively. PHYSICAL EXAMINATION VITAL SIGNS: Temperature is 96.3 degrees Fahrenheit oral. Pulse is 83. Respiratory rate is 16. Blood pressure is 135/69. Oxygen saturation was 88% on room air this morning. Oxygen saturation is currently 90% on oxygen at 3 liters per minute by nasal cannula. ABDOMEN: The abdominal incisions all look good. LABORATORY DATA White blood cell count is 17,800 with no bands. There are 91% neutrophils. Hemoglobin is 13.6. Hematocrit is 41. Electrolytes are normal. Serum creatinine is 1. IMPRESSION 1. Doing well following multiport robotic laparoscopic cholecystectomy on 05/19. 2. Worsening leukocytosis. RECOMMENDATIONS 1. Continue intravenous Zosyn until leukocytosis resolves. 2. Continue regular diet. 3. Continue ambulation. 4. Lovenox and sequential compression devices for deep venous thrombosis prophylaxis. 5. Continue IV Protonix for GI prophylaxis. MTDD
[2017-05-21] MEDS: PANTOPRAZOLE 40 MG INJECTION IVP SCH (08:20)
[2017-05-21] MEDS: POLYETHYL GLYCOL 3350 17gm PACKET PO SCH (08:20)
[2017-05-21] MEDS: ENOXAPARIN 40 MG/0.4 ML INJECTION SQ SCH (08:20)
[2017-05-21] MEDS: ASPIRIN 81 MG CHEWABLE TABLET PO SCH (08:21)
[2017-05-21] MEDS: ESCITALOPRAM 20 MG TABLET PO SCH (08:21)
[2017-05-21] MEDS: NICOTINE 21 MG PATCH TD SCH (08:22)
[2017-05-21] MEDS: NICOTINE PATCH REMOVAL TD SCH (08:55)
--- NOTE | 2017-05-21 09:23 | Progress Note ---
- Date 05/21/17 Subjective: Sridhar was seen during breakfast. He states that he feels good and denies any pain. He has been eating well without any nausea or vomiting. He hasn't had a bowel movement yet, but his currently drinking MiraLAX. He denies any trouble breathing or chest pain. He coughs on occasion, which is typical. He denies feeling weak or dizzy. He desaturated to 88% on room air this morning. Currently he is on 1 L of oxygen. Objective Vital signs: Temperature 97.7 F 05/21/17 08:00 Pulse Rate 65 05/21/17 08:00 Respiratory Rate 16 05/21/17 08:00 Blood Pressure 143/83 H 05/21/17 08:00 Pulse Oximetry 91 05/21/17 08:15 Height/Weight/BMI: Height 1.75 m Weight 84 kg Body Mass Index 27.2 - Constitutional Present: no acute distress, well nourished, well developed - Routine HEENT Exam Head: Present: normocephalic Eye: Present: PERRL. Absent: conjunctival icterus, scleral injection ENT: Present: mucous membranes moist, oropharynx clear - Routine Respiratory Exam Present: decreased breath sounds - Routine Cardiovascular Exam Present: RRR, S1, S2 - Routine Abdominal Exam Present: normoactive bowel sounds, non tender, distended (postop) Comments: incisions are clean, dry, without erythema or purulent drainage - Routine Extremities Exam Present: no edema, pulses intact - Routine Back/Spine/Pelvis Exam Back/Spine: Present: full ROM - Routine Skin Exam Present: intact, dry, warm - Routine Neurological Exam Present: alert, oriented X3, normal speech - Routine Psychiatric Exam Present: normal thought process, cooperative Results - Labs CBC & Chem 7: 05/21/17 03:49 05/21/17 03:49 Microbiology Results: Microbiology 05/19/17 10:44 Gallbladder Gram Stain - Final 05/19/17 10:44 Gallbladder Surgical Culture - Preliminary Staphylococcus aureus Assessment and Plan (1) Cholecystitis, acute Current visit: Yes Status: Acute Assessment and Plan: ASSESSMENT Acute cholecystitis, status post laparoscopic cholecystectomy Leukocytosis, POA Hypokalemia, POA-resolved CAD - Plavix dc'd per cardiology HTN dyslipidemia COPD GERD Bipolar, schizoaffective disorder, Major depression (Previous suicide attempt by hanging), auditory hallucinations-patient pleasant and without complaints of anxiety or signs of distress today. Left adrenal mass Tobaccoism PLAN Continues to do well from a surgical standpoint. He is eating well. His pain is under good control. White count is trending down and is currently 11.8. Continue Zosyn, day #4, while in the hospital. Follow culture results from gallbladder, the preliminary report is growing staph aureus. Potassium is slightly low at 3.4 and replacement has been ordered. BUN and creatinine slightly improved from yesterday. IV fluids discontinued. He was unable to be weaned off of oxygen today. Continue DuoNeb and start acappella. Encourage ambulation. He does not use supplemental oxygen at home, and will likely need an ambulatory oximetry prior to discharge. He is not opposed to going home with oxygen, if needed. We'll need to discuss discharge planning with case management. Suspect he would be a good candidate for home health. 05/21/2017-11:20 AM-I reviewed this chart, the patient history, and the PRECISION LENS CENTERER AND EDGER's/ PA's documented findings as above. We discussed and formulated the assessment and plan as above with the additions below.-Dr. Turner The patient was seen this morning, by his nurse. He states he is feeling really good. He has some mild abdominal discomfort but it is tolerable. He is eating and drinking without difficulties. No nausea or vomiting. He denies any shortness of breath but has occasional hypoxia on room air at rest. His nurse did walk him in the halls on room air and oxygen stated in the 90s. He denied shortness of breath. He states his mood is good and he denies any anxiety or depression. On exam he is alert and in no acute distress. Chest is clear to auscultation. Cardiovascular reveals a regular rate and rhythm. Abdomen is soft with positive bowel sounds. No King. Extremities are free of edema. Impression/plan Acute cholecystitis postop day 2 after laparoscopic cholecystectomy. Patient continues on Zosyn for infected gallbladder. Staph aureus is growing from culture. Await sensitivities. Regarding intermittent hypoxia, the patient was not hypoxic on room air with ambulation. Will have him be up in a chair as much as possible during the day. Try to wean off oxygen at rest. Check overnight oximetry on room air. It's uncertain if he is chronically intermittently hypoxic. Continue to use incentive spirometer. Continue with oxygen the halls. Regarding bipolar, schizoaffective disorder, history of major depression-the patient appears to be doing quite well and appears upbeat. He denies any anxiety or depression. Tobaccoism-recommend cessation Mild hypokalemia-replace orally Possible dismissal tomorrow. DVT Prophylaxis: Lovenox GI Prophylaxis: Protonix Resuscitation Status: Full Code - Physician Narrative Narrative: Date: 05/21/17 Time: 0915 Hospital Course Summary Disclaimer: The visit summary below is not to be considered part of the above Progress Note. Hospital Course: 05/18/17 Admit, observation status, under the hospitalist service. Dr. Arroyo consulted. Results of GB U/S obtained on admission consistent with acute cholecystitis. Plans to take pt to OR in am. NPO after midnight. Recommends to start Zosyn. K still low; KDur ordered. Check mg. Trop was minimally elevated though had neg trop in [place] - repeat in am. Denies angina. EKG ordered, pending. He was cleared by cardiology while still in [place]: moderate michelle-op risk. Sx control: Fentanyl and Reglan and Zofran. Psych history: will have ativan available. No Advanced directives, but he'd like to ask best friend María to be DPOA if she's willing. Full code. Nicotine patch ordered. RT consulted for tobacco cessation. Note: Home meds not reconciled and will need to be ordered once this is done. 05/19/17 Medically stable to proceed with surgery as planned. White count higher this morning, continue antibiotics in the immediate postoperative time. Worrisome for biliary infection and may require further inpatient antibiotics. Resume aspirin, metoprolol, Depakote, and Lexapro postoperatively. Patient typically uses DuoNeb twice daily at home but postoperatively will increase to 4 times daily and request are. Continue IV fluids and PPI. 05/20/17 The patient underwent laparoscopic cholecystectomy yesterday and did well. Discussed with Dr. Arroyo, and he stated there was pus in the gallbladder. He would recommend continued IV antibiotics. The patient is currently on day 3 of Zosyn. White count is up slightly from yesterday. No fevers. No bandemia today. We'll continue Zosyn and recheck CBC and basic metabolic profile tomorrow. The patient has continued hypoxia. It's unknown if he is chronically hypoxic. We 'll check a chest x-ray. Lungs are clear on exam. Continue breathing treatments. Continue nicotine patch. Continue incentive spirometer. Continue to walk in the halls with the nurses. We'll change to inpatient status secondary to need for continued IV antibiotics concerning his grossly infected gallbladder on exam and continued elevated white count as well as regarding his hypoxia. Continue Protonix Start Lovenox today for DVT prophylaxis. Discussed with Dr. Arroyo and he is in agreement. Add MiraLAX to prevent constipation BUN and creatinine up slightly. Continue LR at 50 ML's per hour. Recheck labs tomorrow. Continue metoprolol for hypertension. Continue aspirin for coronary artery disease. 05/21/17 Continues to do well from a surgical standpoint. He is eating well. His pain is under good control. White count is trending down and is currently 11.8. Continue Zosyn, day #4, while in the hospital. Follow culture results from gallbladder, the preliminary report is growing staph aureus. Potassium is slightly low at 3.4 and replacement has been ordered. BUN and creatinine slightly improved from yesterday. IV fluids discontinued. He was unable to be weaned off of oxygen today. Continue DuoNeb and start acappella. Encourage ambulation. He does not use supplemental oxygen at home, and will likely need an ambulatory oximetry prior to discharge.
--- NOTE | 2017-05-21 19:38 | Progress Note ---
DATE 05/21/2017 POSTOP DAY #2 HISTORY The patient is tolerating a regular diet. He is not having any nausea or vomiting. He denies any abdominal pain at the present time. The patient did have an oxygen saturation of 88% on room air this morning. This has improved throughout the day to the point where his most recent oxygen saturation level was 94% on room air. The patient continues to receive intravenous Zosyn. Intravenous fluid administration has been stopped. He continues to receive some respiratory therapy treatments. The patient is receiving Lovenox and sequential compression devices for deep vein thrombosis prophylaxis. He is receiving Protonix for GI prophylaxis. PHYSICAL EXAMINATION VITAL SIGNS: Temperature is 97.6 degrees Fahrenheit oral. Pulse is 63. Respiratory rate is 18. Blood pressure is 149/83. Oxygen saturation is 94% on room air. ABDOMEN: The abdominal incisions look good. LABORATORY DATA White blood cell count was 11,800 with 2 bands this morning. Hemoglobin is 12. Hematocrit is 37.2. Serum sodium is 144. Serum potassium is 3.4. Serum creatinine is 0.9. The culture of fluid aspirated from the gallbladder at the time of operation is growing out Staphylococcus aureus. Sensitivity results for this are not yet available. IMAGING Chest x-ray performed on 05/20/2017 did show some bibasilar atelectasis versus pneumonia. IMPRESSION 1. Doing well overall following multiport robotic laparoscopic cholecystectomy on 05/19/2017. 2. Improving leukocytosis. 3. Bibasilar atelectasis versus pneumonia demonstrated on 05/20/2017 chest x- ray. 4. Mild hypokalemia. RECOMMENDATION 1. Continue intravenous Zosyn for now. 2. Continue Lovenox and sequential compression devices for deep vein thrombosis prophylaxis. 3. Continue Protonix for GI prophylaxis. 4. The mild hypokalemia is being corrected with oral supplemental potassium chloride. 5. Recheck white blood cell count tomorrow. 6. Await final culture and sensitivity reports on fluid aspirated from gallbladder at the time of the operation. 7. If the white blood cell count continues to decrease and the patient continues to do well clinically, he might be able to be discharged at some time tomorrow. It would be good to see the final culture and sensitivity report to guide postdischarge antibiotic treatment. The patient can always complete some antibiotic treatment following discharge with oral antibiotics. [facility]
[2017-05-21] MEDS: DIVALPROEX 500 MG TABLET PO SCH (21:23)
[2017-05-21] MEDS: SENNA + DOCUSATE TABLET PO SCH (21:23)
[2017-05-22] MEDS: Oxycodone *IR* 5 MG TABLET PO PRN ×2 (01:03→06:11)
[2017-05-22] MEDS: PIPERACILLIN/TAZOBACTAM 3.375 GM in NS 100 ML IV SCH ×2 (04:07→10:28)
[2017-05-22] MEDS ORDERED: PANTOPRAZOLE 40 MG TABLET PO SCH (06:30)
[2017-05-22] MEDS: ALBUTEROL/IPRATROPIUM 2.5mg-0.5mg/3ml NEB AEROSOL SCH ×2 (06:32→12:07)
[2017-05-22] MEDS: POLYETHYL GLYCOL 3350 17gm PACKET PO SCH (08:36)
[2017-05-22] MEDS: ENOXAPARIN 40 MG/0.4 ML INJECTION SQ SCH (08:36)
[2017-05-22] MEDS: ESCITALOPRAM 20 MG TABLET PO SCH (08:37)
[2017-05-22] MEDS: SENNA + DOCUSATE TABLET PO SCH (08:37)
[2017-05-22] MEDS: ASPIRIN 81 MG CHEWABLE TABLET PO SCH (08:37)
[2017-05-22] MEDS: NICOTINE 21 MG PATCH TD SCH (08:38)
[2017-05-22] MEDS: NICOTINE PATCH REMOVAL TD SCH (08:40)
[2017-05-22 11:12] VITALS: BP 128/75; PULSE 68; TEMP 97.3; O2SAT 91
[2017-05-22 12:14] VITALS: RESP 20
--- NOTE | 2017-05-22 13:22 | Discharge Summary ---
Discharge Information Date of admission: 05/20/17 10:55 Anticipated date of discharge: 05/22/17 Attending Physician: Jesenia Burton MD Consults: Consulting Provider: David Arroyo Reason For Exam: right upper quadrant pain; hx cholecystitis - Discharge Diagnosis (1) Cholecystitis, acute Status: Acute Acute cholecystitis - status post laparoscopic cholecystectomy, Dr. Arroyo, . Acute blood loss anemia - (Hgb 12.4 on 05/22/17). Hypernatremia - (Na 145 on 05/22/17). Leukocytosis, POA, resolved. Hypokalemia, POA, resolved. CAD - Plavix dc'd per cardiology HTN dyslipidemia COPD GERD Bipolar, schizoaffective disorder, major depression (Previous suicide attempt by hanging), auditory hallucinations Left adrenal mass Tobaccoism - Procedures Procedures: DATE OF OPERATION 05/19/2017 PREOPERATIVE DIAGNOSIS Acute cholecystitis and cholelithiasis. POSTOPERATIVE DIAGNOSIS Acute cholecystitis and cholelithiasis. OPERATION Multiport robotic laparoscopic cholecystectomy. SURGEON Dr. Arroyo - Laboratory Labs: 05/22/17 03:47 05/22/17 03:47 - Microbiology Microbiology 05/19/17 10:44 Gallbladder Gram Stain - Final 05/19/17 10:44 Gallbladder Surgical Culture - Final Staphylococcus aureus - Radiology Radiology: Date of Exam: 05/18/17 Type of Exam(s): US gall bladder Reason for Exam(s): acute cholecystectomy Findings: Hepatic parenchyma is homogeneous without evidence for focal mass. The gallbladder is abnormal with multiple shadowing gallstones measuring up to 1.5 cm in diameter. At least one stone appears lodged in the gallbladder neck. There is wall thickening up to 5 mm. The sonographic Garcia's sign was positive. Both the intra and extrahepatic biliary system are of normal caliber with the common duct measuring 6 mm in dimension. Visualized portions of the head and body of the pancreas are unremarkable. The right kidney is present without collecting system dilatation. The right kidney measures 10.1 cm in length. Impression: Acute cholecystitis. Date of Exam: 05/20/17 Type of Exam(s): XR chest 2V Reason for Exam(s): hypoxia FINDINGS: Linear airspace opacity in the right lower lobe with hazy infiltrate in the left lower lobe as well. Upper lung kelley are clear. No pneumothorax. Trace right pleural effusion. Heart size and mediastinal contours are within normal limits. Pulmonary vascularity is normal. Free intraperitoneal air beneath the right hemidiaphragm, likely related to recent surgery. Impression: Bibasilar atelectasis versus pneumonia. History of Present Illness HPI: Sridhar Che is a 62 y/o male transferred to [facility] from [facility] after admission there for cholecystitis. CT scan on 05/17/17 showed GB wall thickening (an earlier CT revealed percholecystic fat stranding which resolved). There was also a small cyst in the central prostrate. Labs on 05/18/17 : Na 134, K 3.6 (improved from 3.0), BUN 6, cr 0.8, AP 96, ALT 12, AST 15, T bili 0.6, trop neg, lipase 10, WBC 15, hgb 14.9, plt 179. He was actually seen approx. 4 weeks earlier with near-exact symptoms and diagnosed with GB disease. At that time, he was admitted and was cleared by cardiology IRINEO Fields from Dr Patiño's office: Plavix was dc'd (and actually, stated that there was no need to continue it). He was declared to be at moderate michelle- operative CV risk. Since he was readmitted and previously cleared by cardiology , Dr. Arroyo and Dr. Burton were consulted and accepted the patient in transfer. Sridhar reports that he had RUQ pain with nausea and vomiting. He has felt a bit weak in general but denies vertigo, dizziness, or syncope. He has had sweating and chills but denies fevers. He denies diarrhea or constipation or hematochezia or melena - last BM was 05/17/17. He also denied any hematemesis. No recent illness ie URI or urinary sx. He denies chest pain or palpitations but has been told in the past that he has an irreg. HR (though denied A-fib). He has felt "a little" SOA and reports b/l leg swelling. He was on oxygen during this interview but is not O2 dependent at home. He uses breathing treatments at home which are helpful. Objective Vital signs: Temperature 97.3 F 05/22/17 11:11 Pulse Rate 68 05/22/17 11:11 Respiratory Rate 20 05/22/17 12:08 Blood Pressure 128/75 05/22/17 11:11 Pulse Oximetry 91 05/22/17 11:11 Rhythm: Premature Ventricular Contractions Height/Weight/BMI: Height 5 ft 9 in Weight 190 lb 7.67 oz Body Mass Index 27.2 - Constitutional Present: no acute distress, well nourished, well developed, cooperative - Routine HEENT Exam Head: Present: normocephalic, atraumatic Eye: Present: PERRL. Absent: conjunctival icterus ENT: Present: mucous membranes moist, oropharynx clear - Routine Respiratory Exam Present: CTA bilaterally. Absent: rales, respiratory distress, rhonchi, stridor , wheezes, crackles - Routine Cardiovascular Exam Present: RRR, S1, S2 - Routine Abdominal Exam Present: soft, normoactive bowel sounds, non tender - Routine Extremities Exam Present: no edema, full ROM, pulses intact - Routine Back/Spine/Pelvis Exam Back/Spine: Present: full ROM. Absent: vertebral tenderness - Routine Musculoskeletal Exam Musculoskeletal: Present: moving extremities well - Routine Skin Exam Present: dry, warm. Absent: jaundice Comments: afebrile - Routine Neurological Exam Present: alert, moving all extremities, hearing grossly intact, normal speech - Routine Lymphatic Exam Lymphatic: Absent: lymphedema - Routine Psychiatric Exam Present: normal affect, cooperative, good insight, good judgment Hospital Course This is a general summary of the patient's hospital course. For more details refer to the complete medical record. Hospital course: Patient was admitted to [facility] observation status under the hospitalist service for evaluation and treatment of cholecystitis. Dr. Arroyo, surgery, was consulted for further surgical evaluation and treatment. He was made NPO and Zosyn was initiated for empiric antimicrobial coverage. He was noted to be hypokalemic (K 3.5) upon admission which was treated successfully with KDur. Troponin was initially noted to be elevated (0.121). Serial troponins showed trending down (0.121, 0.092, 0.068). He remained asymptomatic and EKG showed no acute changes. Prior to his admission at [facility], he was seen and evaluated by cardiology in [place] and was found to be a moderate michelle-operative risk. His pain was controlled with fentanyl and he was given Zofran and Reglan for nausea. Given his history of tobaccoism, he was given a nicotine patch and Ativan was available as needed for anxiety. On 05/19/17, he underwent successful laparoscopic cholecystectomy. Dr. Arroyo noted pus in the gallbladder at the time of surgery and recommended monitoring closely for biliary infection and sepsis as well as continuation of Zosyn for antimicrobial treatment. He was also noted to have an increased leukocytosis following surgery (max of 17.8 on ), with gradual resolution prior to discharge and remained afebrile. His home medications were resumed on 05/19/17 without issue. Post-operatively, he was noted to have hypoxia with no known history of hypoxia or home oxygen dependence. His admission status was changed to inpatient due to requiring supplemental oxygen and close respiratory monitoring with respiratory cares. CXR revealed bibasilar atelectasis vs. pneumonia. He was encourage to use his incentive spirometer and was gradually weaned to his baseline on room air. He was encourage to increase his activity and able to ambulate the halls without respiratory complaints. Lovenox was initiated for DVT prophylaxis and he remained on his home ASA for CAD. He continued to make gains. His appetite returned and he was able to tolerate oral intake well. His pain remained under good control and leukocytosis was trending down. Culture and sensitivity from gallbladder revealed pansensitive staph aureus. He was able to be weaned off oxygen and was breathing well on room air. Ambulatory oxygen was obtained and was stable on room air. He completed 5 days of Zosyn and will be continued on Augmentin 875 for an additional 5 days following discharge. He is encouraged to follow up with OMI Peguero, on 05/28/17 at 11:20 am for post- surgical and hospitalization follow up. Time spent with patient: greater than 35 minutes Resuscitation Status: Full Code Discharge Plan - Discharge Disposition Discharge Date: 05/22/17 Disposition: 01 Discharged Home, Self-Care *Condition: Stable Reason For Visit (Visit label in EMR): Right upper quadrant pain - Discharge Medications *Discharge Medications: New Amoxicillin/Potassium Clav [Augmentin 875-125 Tablet] 1 each PO BID #10 tab Oxycodone *IR* [Roxicodone *Ir*] 5 - 10 mg PO QID PRN #25 tab PRN Reason: Pain Continue Albuterol/Ipratropium [Duoneb] BID Aspirin Chewable [ASA] 81 mg PO DAILY Divalproex [Depakote] 1 tab PO HS Lexapro DAILY Metoprolol Tartrate [Lopressor] 25 mg PO BIDWM - Discharge Packet/Instructions *Diet: Regular *Pain Management/Treatment: Tylenol as needed per package instructions or take oxycodone 5 mg 1-2 tablets up to 4 times daily if pain is not controlled with Tylenol. I would anticipate minimal need for stronger pain medications at this time. *Wound Care: Surgical wounds can be open to air but should be kept dry Additional Instructions: Resume your usual home medications as you took them before; take antibiotics (amoxicillin/clavulanic acid) 1 twice daily for 5 more days. *Expected Signs/Symptoms: Mild discomfort in the abdomen; pain medications may cause constipation so you may need to take a stool softener or fiber supplement to help with bowel function *Notify Physician if: Fever, increasing abdominal pain, nausea or vomiting *During Business Hours Contact: Your usual medical provider in [place] or Dr. Arroyo's office *After Business Hours Contact: [facility] or [facility] at [phone] and ask that the on-call physician be paged to contact the on- call physicians for your primary care physician or Dr. Arroyo *Pending Lab/Results: No Pending Lab - Referrals/Follow Up *Referrals/Follow Up: Aidee Mcarthur PA [Physician Drawing Frame Tender] - 05/28/17 11:20 am David Arroyo MD [Physician] - 05/24/17 11:30 am - Patient Handouts Patient Handouts: Laparoscopic Cholecystectomy (DC) - Dismissal Complete Discharge Instructions are:: Complete Physician Narrative - Narrative Physician: Jesenia Burton MD Attestation Narrative: Date: 05/22/17 Time: 1630 I have independently evaluated and examined this patient. I reviewed the chart, the patient's history, and the ELECTRIC REPAIR SUPERVISOR/PA's documented findings as above. We discussed and formulated the assessment and plan as above with additions as below: Mr. Che was seen earlier today and reported no nausea, vomiting, or abdominal pain. Ambulating without difficulty and has had no fever. Leukocytosis is resolved. Patient is alert and in no distress. Oropharynx is clear and there is no evidence of thrush. Abdomen is soft, nontender, and bowel sounds are present. Laparoscopic sites are clean and dry. Stable for discharge at this time; to follow up with Dr. Arroyo for reassessment in approximately 1 week.
== END 2017-05-22 13:45 | disposition home or self-care (01) | DRG 988 ==
LOC: SRG → SUATTDRO → EDSTATUS 12:28 → SUR 13:29 → SRG 13:31 → SUATTDRO 05-20 10:55 → SRG 05-20 10:55 → UNDODISIN 05-22 13:45
PROVIDERS: ADMIT Internal Medicine; ATTEND Internal Medicine